=== PATIENT | female | born 1950 | race Caucasian/White ===

== ENCOUNTER → 2023-09-10 09:56 | Outpatient (REF) | payer OTHER, SELFPAY | LOC: HWRAD 09:56 | PROVIDERS: ATTENDING PHYSICIAN Physician Assistant; FAMILY PHYSICIAN Physician Assistant Medical | DX: K76.0 Fatty (change of) liver, not elsewhere classified (principal) | CPT/HCPCS: 76700 ==

== ENCOUNTER 2023-09-19 06:32 | Day surgery (SDC) | payer OTHER, SELFPAY ==
[2023-09-19 07:35] VITALS: BMI 27.8
[2023-09-19 07:46] VITALS: BP 162/81
[2023-09-19 07:50] LABS: Glucose - Point of Care 133 mg/dl (70-99)
[2023-09-19 07:51] VITALS: BMI 27.8
[2023-09-19 09:49] LABS: Glucose - Point of Care 134 mg/dl (70-99)
[2023-09-19 10:08] VITALS: BP 109/66
[2023-09-19 10:11] VITALS: BP 109/66
[2023-09-19 10:15] VITALS: BP 108/59
[2023-09-19 10:30] VITALS: BP 125/69
[2023-09-19 10:45] VITALS: BP 121/66
== END 2023-09-19 10:55 | disposition home or self-care (01) ==
LOC: GI 06:32
PROVIDERS: ATTENDING PHYSICIAN Internal Medicine Gastroenterology
DX: K22.4 Dyskinesia of esophagus (principal); K22.89 Other specified disease of esophagus; K86.9 Disease of pancreas, unspecified; R13.10 Dysphagia, unspecified; R93.89 Abnormal findings on diagnostic imaging of other specified body structures; R93.5 Abnormal findings on diagnostic imaging of other abdominal regions, including retroperitoneum
CPT/HCPCS: 43259; 82962

== ENCOUNTER → 2023-11-12 14:36 | Outpatient (REF) | payer OTHER, SELFPAY | LOC: WDC 14:36 | PROVIDERS: ATTENDING PHYSICIAN Physician Assistant Medical | DX: Z12.31 Encounter for screening mammogram for malignant neoplasm of breast (principal) | CPT/HCPCS: 77063; 77067 ==

== ENCOUNTER → 2024-02-22 10:10 | Outpatient (REF) | payer OTHER, SELFPAY | LOC: RAD 10:10 | PROVIDERS: ATTENDING PHYSICIAN Physician Assistant Medical | DX: Z87.891 Personal history of nicotine dependence (principal); Z78.0 Asymptomatic menopausal state | CPT/HCPCS: 76770 ==

== ENCOUNTER → 2024-03-09 14:25 | Outpatient (REF) | payer OTHER, SELFPAY | LOC: HWRAD 14:25 | PROVIDERS: ATTENDING PHYSICIAN Physician Assistant Medical | DX: Z78.0 Asymptomatic menopausal state (principal); Z87.891 Personal history of nicotine dependence | CPT/HCPCS: 77080 ==

== ENCOUNTER → 2024-12-28 15:17 | Outpatient (REF) | payer OTHER, SELFPAY | LOC: RAD 15:17 | PROVIDERS: ATTENDING PHYSICIAN Physician Assistant Medical | DX: R22.42 Localized swelling, mass and lump, left lower limb (principal) | CPT/HCPCS: 93971 ==